=== PATIENT | female | born 1970 | race Caucasian/White ===

== ENCOUNTER 2018-03-22 00:11 | Emergency (ER) | payer OTHER ==
[~2018-03-22] VITALS: Ht 180.3 cm; Wt 98.0 kg
[2018-03-22] MEDS ORDERED: FISH OIL 1,001000 M2 (00:30)
[2018-03-22] MEDS ORDERED: ESCITALOPRAM OX20 MG (00:30)
[2018-03-22] MEDS ORDERED: ZARAH TABLET1 EACH (00:31)
[2018-03-22] MEDS ORDERED: SINGULAIR 10 MG10 M1 (00:31)
[2018-03-22] MEDS ORDERED: VALACYCLOVIR500 MG (00:32)
[2018-03-22] MEDS ORDERED: SIMVASTATIN (00:38)
[2018-03-22] MEDS ORDERED: MOBIC15 MG PO (02:19)
[2018-03-22] MEDS ORDERED: NORCO 5-325 TA1 EACH PO (02:19)
[2018-03-22] MEDS ORDERED: DIAZEPAM 5 MG5 M1 PO (02:19)
[2018-03-22 02:39] VITALS: BP 124/55
== END 2018-03-22 02:41 | disposition home or self-care (01) ==
LOC: M.ERS 00:11
DX: S22.31XA Fracture of one rib, right side, initial encounter for closed fracture (principal); Z88.2 Allergy status to sulfonamides; W18.2XXA Fall in (into) shower or empty bathtub, initial encounter; Y93.E1 Activity, personal bathing and showering; Y92.89 Other specified places as the place of occurrence of the external cause; Y99.8 Other external cause status